=== PATIENT | female | born 1995 | race Hispanic/Latino ===

== ENCOUNTER 2018-01-08 13:06 | Outpatient (CLI) | payer OTHER ==
[2018-01-08] MEDS ORDERED: XYLOCAINE TOPICAL 4% TP ONE (13:40)
== END 2018-01-08 13:07 | disposition home or self-care (01) ==
LOC: WOUND 13:06
PROVIDERS: ATTEND Internal Medicine
DX: T81.89XA Other complications of procedures, not elsewhere classified, initial encounter (principal); X58.XXXA Exposure to other specified factors, initial encounter; Y93.89 Activity, other specified; Y92.89 Other specified places as the place of occurrence of the external cause; Y99.8 Other external cause status
CPT/HCPCS: 11042; G0463

== ENCOUNTER 2018-01-15 11:20 | Outpatient (CLI) | payer OTHER ==
[2018-01-15] MEDS ORDERED: XYLOCAINE TOPICAL 4% TP ONE (11:35)
== END 2018-01-15 11:21 | disposition home or self-care (01) ==
LOC: WOUND 11:20
PROVIDERS: ATTEND Surgery
DX: T81.89XD Other complications of procedures, not elsewhere classified, subsequent encounter (principal); S31.105D Unspecified open wound of abdominal wall, periumbilic region without penetration into peritoneal cavity, subsequent encounter; X58.XXXD Exposure to other specified factors, subsequent encounter; Y83.8 Other surgical procedures as the cause of abnormal reaction of the patient, or of later complication, without mention of misadventure at the time of the procedure

== ENCOUNTER 2018-01-22 11:05 | Outpatient (CLI) | payer OTHER ==
[2018-01-22] MEDS ORDERED: XYLOCAINE TOPICAL 4% TP ONE ×2 (11:18→11:21)
== END 2018-01-22 11:06 | disposition home or self-care (01) ==
LOC: WOUND 11:05
PROVIDERS: ATTEND Surgery
DX: T81.89XD Other complications of procedures, not elsewhere classified, subsequent encounter (principal); Y83.8 Other surgical procedures as the cause of abnormal reaction of the patient, or of later complication, without mention of misadventure at the time of the procedure
CPT/HCPCS: 17250

== ENCOUNTER 2018-01-29 13:05 | Outpatient (CLI) | payer OTHER | END 2018-01-29 13:06 | disposition home or self-care (01) | LOC: WOUND 13:05 | PROVIDERS: ATTEND Obstetrics & Gynecology Gynecologic Oncology | DX: T81.89XD Other complications of procedures, not elsewhere classified, subsequent encounter (principal); Y83.8 Other surgical procedures as the cause of abnormal reaction of the patient, or of later complication, without mention of misadventure at the time of the procedure | CPT/HCPCS: 99214; G0463 ==

== ENCOUNTER 2018-02-12 13:04 | Outpatient (CLI) | payer OTHER ==
[2018-02-12] MEDS ORDERED: XYLOCAINE TOPICAL 2% 5ML ONE (13:10)
[2018-02-12] MEDS ORDERED: XYLOCAINE TOPICAL 2% 5ML TP ONE (13:18)
== END 2018-02-12 13:05 | disposition home or self-care (01) ==
LOC: WOUND 13:04
PROVIDERS: ATTEND Surgery
DX: T81.89XD Other complications of procedures, not elsewhere classified, subsequent encounter (principal); Y83.8 Other surgical procedures as the cause of abnormal reaction of the patient, or of later complication, without mention of misadventure at the time of the procedure
CPT/HCPCS: 99214; G0463

== ENCOUNTER 2018-02-19 13:05 | Outpatient (CLI) | payer OTHER | END 2018-02-19 13:06 | disposition home or self-care (01) | LOC: WOUND 13:05 | PROVIDERS: ATTEND Surgery | DX: T81.89XD Other complications of procedures, not elsewhere classified, subsequent encounter (principal); Y83.8 Other surgical procedures as the cause of abnormal reaction of the patient, or of later complication, without mention of misadventure at the time of the procedure | CPT/HCPCS: 99213; G0463 ==